=== PATIENT | female | born 1975 | race African-American/Black ===

== ENCOUNTER 2018-11-04 11:23 | Emergency (ER) | payer OTHER ==
[2018-11-04 11:33] VITALS: BP 118/74; PULSE 95; TEMP 98.2; BMI 38.7
--- NOTE | 2018-11-04 12:46 | PDOC ---
History of Present Illness - General Chief Complaint: Pain Stated Complaint: BILAT LEG PAIN Time Seen by Provider: 11/04/18 11:58 History Source: Patient - History of Present Illness Occurred: reports: other Severity: Yes: moderate Lower Extremity Pain Location: bilateral: leg Past History - Past Medical History Allergies/Adverse Reactions: Allergies Allergy/AdvReac Type Severity Reaction Status Date / Time tree nut Allergy Severe Swelling Verified 11/04/18 11:28 latex Allergy Verified 11/04/18 11:28 lidocaine Allergy Verified 11/04/18 11:28 shrimp Allergy Swelling Verified 11/04/18 11:28 Home Medications: Ambulatory Orders Albuterol Sulfate [Proair Hfa -] 1 - 2 inh PO TID PRN 08/21/15 Gabapentin 600 mg PO TID 08/21/15 Olmesartan/Hydrochlorothiazide [Benicar Hct 40-25 mg Tablet] 1 each PO DAILY Pantoprazole Sodium [Protonix] 40 mg PO DAILY PRN 08/21/15 Tiotropium [place] [Spiriva Respimat] 4 gm IH DAILY PRN 08/21/15 Ibuprofen [Motrin -] 800 mg PO Q8H PRN #60 tablet 08/23/15 Duloxetine HCl [Cymbalta] 60 mg PO BID 01/06/16 Hydroxychloroquine Sulfate [Plaquenil] 1 tab PO BID 05/30/18 Oxycodone HCl/Acetaminophen [Percocet 10-325 mg Tablet] 1 tab PO DAILY PRN 05/30 Zolpidem Tartrate [Ambien] 1 tab PO HS 05/30/18 Anemia: No Asthma: Yes (LAST USED INHALERS yesterday) Cancer: No Cardiac Disorders: Yes (ABNORMAL 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-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,STRESS TEST,CARD CATH--OK ,NO STENT) CVA: No COPD: No CHF: No Dementia: No Diabetes: No GI Disorders: Yes (GERD) Disorders: No HTN: Yes Hypercholesterolemia: Yes Liver Disease: No Seizures: No Thyroid Disease: No - Surgical History Abdominal Surgery: No Appendectomy: No Cardiac Surgery: No Cholecystectomy: Yes Lung Surgery: No Neurologic Surgery: No Orthopedic Surgery: No - Immunization History Immunization Up to Date: Yes - Suicide/Smoking/Psychosocial Hx Smoking History: Never smoked Have you smoked in the past 12 months: Yes Number of Cigarettes Smoked Daily: 6 Cigars Per Day: 8 Hx Alcohol Use: No Drug/Substance Use Hx: No Substance Use Type: Alcohol Hx Substance Use Treatment: No Review of Systems - Review of Systems Constitutional: No: Chills, Fever Respiratory: No: Shortness of Breath Cardiac (ROS): No: Chest Pain, Palpitations *Physical Exam - Vital Signs Last Vital Signs Temp Pulse Resp BP Pulse Ox 98.2 F 95 H 17 118/74 100 11/04/18 11:29 11/04/18 11:29 11/04/18 11:29 11/04/18 11:11/04/18 11:29 - Physical Exam General Appearance: Yes: Appropriately Dressed. No: Apparent Distress HEENT: positive: Normal Voice Neck: positive: Supple Respiratory/Chest: negative: Respiratory Distress Extremity: positive: Normal Inspection, Other (pedal pulses intact b/l). negative: Tender, Swelling Integumentary: positive: Dry, Warm Neurologic: positive: Fully Oriented, Alert, Normal Mood/Affect ED Treatment Course - RADIOLOGY Radiology Studies Ordered: Category Date Time Status DUPLEX VASCUL US-2LEGS [US] Stat Ultrasound 11/04/18 12:42 Ordered Medical Decision Making - Medical Decision Making 11/04/18 12:43 Patient is a 40-year-old female with history of lupus, migraines, hypertension, smoker, COPD, here with bilateral lower extremity pain. Patient states for the past 2 weeks has had intermittent pain to bilateral lower legs now radiating into her thighs. Hurts with certain movement. Has not taken anything for pain. No trauma. No history of DVT. Denies any other other acute symptoms at this time. States she was across the street seeing her neurologist for her migraines and mentioned pain and was told to come to the ED to make sure she doesn't have blood clots. Patient denies any acute chest pain, shortness of breath or palpitations at this time see exam B/l LE pain No trauma No findings on exam to explain sxs, possibly MSK -offered pain meds and declined -will get DVT study given h/o lupus -anticipate dc w/ pmd f/u 11/04/18 14:53 US neg for DVT. Stable for discharge w/ PMD f/u for further eval 11/04/18 15:09 *DC/Admit/Observation/Transfer Diagnosis at time of Disposition: Leg pain, bilateral - Discharge Dispostion Disposition: HOME Condition at time of disposition: Good - Referrals Referrals: Yuri Kitchen [Primary Care Provider] - - Patient Instructions Additional Instructions: The cause of your leg pain is unclear at this time and you will need to continue to follow-up with her PMD for further evaluation. Ultrasound of your legs were negative for any blood clot - Post Discharge Activity
== END 2018-11-04 15:09 | disposition home or self-care (01) ==
LOC: JER 11:23
DX: M79.605 Pain in left leg (principal); M79.604 Pain in right leg; M32.9 Systemic lupus erythematosus, unspecified; I10 Essential (primary) hypertension; Z98.61 Coronary angioplasty status; J44.9 Chronic obstructive pulmonary disease, unspecified; F17.210 Nicotine dependence, cigarettes, uncomplicated
CPT/HCPCS: 93970-TC; 99282-25

== ENCOUNTER 2021-06-04 12:32 | Emergency (ER) | payer OTHER ==
[2021-06-04 12:47] VITALS: TEMP 97.9; BMI 37.9
[2021-06-04] MEDS ORDERED: morphine CARPU-JECT 4 MG/1 ML DISP.SYRIN IVPUSH ONE (13:56)
[2021-06-04] MEDS ORDERED: morphine SULFATE 4 MG/ML VIAL ONE (13:59)
[2021-06-04 14:13] LABS: BASO % 0.5 % (0-2.0); EOS % 1.6 % (0-4.5); HEMATOCRIT 43.4 % (32.4-45.2); HEMOGLOBIN 14.6 GM/dL (10.7-15.3); LYMPH % 27.7 % (8-40); MCH 24.5 pg (25.7-33.7); MCHC 33.5 g/dl (32.0-36.0); MEAN CELL VOLUME 73.1 fl (80-96); MEAN PLT VOLUME 8.7 fl (7.5-11.1); MONO % 3.2 % (3.8-10.2); PLATELET COUNT 232 10^3/uL (134-434); RBC 5.94 M/mm3 (3.60-5.2)
[2021-06-04 14:28] LABS: INR 1.16 (0.83-1.09)
[2021-06-04 14:35] LABS: CALCIUM 9.6 mg/dL (8.5-10.1)
[2021-06-04 14:36] LABS: ALBUMIN 3.7 g/dl (3.4-5.0); BLOOD UREA NITROGEN 8.4 mg/dL (7-18)
[2021-06-04 14:39] LABS: CREATININE 0.9 mg/dL (0.55-1.3)
[2021-06-04 14:40] LABS: BILIRUBIN,TOTAL 0.4 mg/dL (0.2-1); TOT PROT 8.2 g/dl (6.4-8.2)
[2021-06-04 14:46] LABS: PH,URINE 5.5 (5.0-8.0); URINE APPEARANCE CLEAR; URINE BILIRUBIN NEGATIVE (NEGATIVE); URINE COLOR YELLOW; URINE GLUCOSE (UA) NEGATIVE (NEGATIVE); URINE KETONE NEGATIVE (NEGATIVE); URINE LEUK ESTERASE NEGATIVE (NEGATIVE); URINE NITRITE NEGATIVE (NEGATIVE); URINE PROTEIN NEGATIVE (NEGATIVE); URINE UROBILINOGEN 0.2 mg/dL (0.2-1.0)
[2021-06-04] MEDS ORDERED: SIMETHICONE 80 MG TAB.CHEW (FP) PO ONE (20:35)
[2021-06-04] MEDS ORDERED: MAG HYDROX/AL HYDROX/SIMETH 30 ML UNIT-DOSE CUP PO ONE (20:44)
[2021-06-04] MEDS ORDERED: MAG HYDROX/AL HYDROX/SIMETH 30 ML UNIT-DOSE CUP ONE (20:45)
[2021-06-04 21:22] VITALS: BP 132/84; PULSE 79
== END 2021-06-04 21:26 | disposition home or self-care (01) ==
LOC: JER 12:32
PROC: 3E033GC Introduction of Other Therapeutic Substance into Peripheral Vein, Percutaneous Approach (ICD-10-PCS; principal; 2021-06-04)
DX: R14.0 Abdominal distension (gaseous) (principal)
CPT/HCPCS: 36415; 74019-TC-FY; 74177-TC; 76705-TC; 80053; 81003; 83690; 85025; 85610; 86850; 86900; 86901; 87086; 99285-25; Q9967

== ENCOUNTER 2022-05-12 10:54 | Emergency (ER) | payer OTHER ==
[2022-05-12 11:03] VITALS: BP 154/89; PULSE 91; RESP 17; TEMP 97.6; BMI 38.7
[2022-05-12] MEDS ORDERED: ACETAMINOPHEN/CAFFEINE/BUTALBITAL 1 TAB PO ONE (11:27)
[2022-05-12] MEDS ORDERED: METOCLOPRAMIDE HCL 10 MG TABLET (FP) PO ONE ×2 (11:27→11:32)
[2022-05-12] MEDS ORDERED: KETOROLAC TROMETHAMINE 30 MG/1 ML VIAL IM ONE (11:27)
[2022-05-12] MEDS ORDERED: KETOROLAC TROMETHAMINE 30 MG/1 ML VIAL ONE (11:32)
[2022-05-12] MEDS ORDERED: ACETAMINOPHEN/CAFFEINE/BUTALBITAL 1 TAB ONE (11:42)
== END 2022-05-12 12:49 | disposition home or self-care (01) ==
LOC: JER 10:54
PROC: 3E0233Z Introduction of Anti-inflammatory into Muscle, Percutaneous Approach (ICD-10-PCS; principal; 2022-05-12)
DX: G44.209 Tension-type headache, unspecified, not intractable (principal)
CPT/HCPCS: 70450-TC; 84703; 99284-25

== ENCOUNTER 2023-11-22 08:55 | Emergency (ER) | payer OTHER ==
[2023-11-22 09:07] VITALS: BMI 37.1
[2023-11-22] MEDS ORDERED: ACETAMINOPHEN 325 MG TABLET (FP) ONE (09:32)
[2023-11-22] MEDS ORDERED: MAG HYDROX/AL HYDROX/SIMETH 30 ML UNIT-DOSE CUP ONE (09:32)
[2023-11-22] MEDS ORDERED: FAMOTIDINE 20 MG TABLET ONE (09:32)
[2023-11-22] MEDS: MAG HYDROX/AL HYDROX/SIMETH 30 ML UNIT-DOSE CUP PO ONE (09:40)
[2023-11-22] MEDS: FAMOTIDINE 10 MG TABLET PO ONE (09:40)
[2023-11-22] MEDS: ACETAMINOPHEN 325 MG TABLET (FP) PO ONE (09:40)
[2023-11-22] MEDS: SODIUM CHLORIDE 0.9% 500 ML INFUS.BAG IV ONE (09:45)
[2023-11-22 10:02] LABS: BASO % 0.4 % (0-2.0); EOS % 1.8 % (0-4.5); HEMATOCRIT 41.7 % (32.4-45.2); HEMOGLOBIN 13.8 GM/dL (10.7-15.3); LYMPH % 22.7 % (8-40); MCH 23.7 pg (25.7-33.7); MEAN CELL VOLUME 71.9 fl (80-96); MEAN PLT VOLUME 7.9 fl (7.5-11.1); MONO % 6.7 % (3.8-10.2); NEUT % 68.4 % (42.8-82.8); PLATELET COUNT 222 10^3/uL (134-434); RDW 15.4 % (11.6-15.6); WHITE BLOOD COUNT 10.5 K/mm3 (4.0-10.0)
[2023-11-22 10:07] LABS: INR 1.06 (0.83-1.09)
[2023-11-22 10:10] LABS: ACTIVATED PTT 33.6 SECONDS (25.2-36.5)
[2023-11-22 10:18] LABS: POTASSIUM 4.5 mmol/L (3.5-5.1)
[2023-11-22 10:20] LABS: CALCIUM 9.6 mg/dL (8.5-10.1)
[2023-11-22 10:21] LABS: ALBUMIN 3.2 g/dl (3.4-5.0); BLOOD UREA NITROGEN 9.4 mg/dL (7-18); MAGNESIUM 2.3 mg/dL (1.8-2.4)
[2023-11-22 10:24] LABS: CREATININE 0.9 mg/dL (0.55-1.3)
[2023-11-22 10:25] LABS: BILIRUBIN,TOTAL 0.4 mg/dL (0.2-1); TOT PROT 7.5 g/dl (6.4-8.2)
[2023-11-22 10:49] LABS: URINE APPEARANCE CLEAR; URINE BILIRUBIN 1+ (NEGATIVE); URINE COLOR DK YELLOW; URINE GLUCOSE (UA) NEGATIVE (NEGATIVE); URINE KETONE TRACE (NEGATIVE); URINE LEUK ESTERASE NEGATIVE (NEGATIVE); URINE NITRITE NEGATIVE (NEGATIVE); URINE PROTEIN NEGATIVE (NEGATIVE)
[2023-11-22] MEDS ORDERED: KETOROLAC TROMETHAMINE 15 MG/ML VIAL ONE ×2 (12:26→12:33)
[2023-11-22] MEDS: KETOROLAC TROMETHAMINE 15 MG/ML VIAL IVPUSH ONE (12:35)
[2023-11-22 12:44] VITALS: BP 128/77; PULSE 79; RESP 17; TEMP 98.5
== END 2023-11-22 12:45 | disposition home or self-care (01) ==
LOC: JER 08:55
PROC: 3E0333Z Introduction of Anti-inflammatory into Peripheral Vein, Percutaneous Approach (ICD-10-PCS; principal; 2023-11-22)
DX: R10.13 Epigastric pain (principal)
CPT/HCPCS: 36415; 74177-TC; 80053; 81003; 83690; 83735; 84484; 85025; 85610; 85730; 87086; 93005; 93010; 99285-25

== ENCOUNTER 2024-01-24 07:41 | Observation (INO) | payer OTHER ==
[2024-01-24 07:53] VITALS: BMI 37.9
[2024-01-24] MEDS ORDERED: METOCLOPRAMIDE HCL INJECTION 10 MG/2 ML VIAL ONE (09:31)
[2024-01-24 09:38] LABS: HEMATOCRIT 47.7 % (32.4-45.2); MCH 23.9 pg (25.7-33.7); MCHC 33.6 g/dl (32.0-36.0); MEAN CELL VOLUME 71.2 fl (80-96); MEAN PLT VOLUME 7.6 fl (7.5-11.1); PLATELET COUNT 235 10^3/uL (134-434); RDW 15.5 % (11.6-15.6); WHITE BLOOD COUNT 8.8 K/mm3 (4.0-10.0)
[2024-01-24] MEDS: SODIUM CHLORIDE 0.9% 500 ML INFUS.BAG IV ONE ×2 (09:46→15:14)
[2024-01-24] MEDS: METOCLOPRAMIDE HCL INJECTION 10 MG/2 ML VIAL IVPUSH ONE (09:47)
[2024-01-24 09:54] LABS: POTASSIUM 4.7 mmol/L (3.5-5.1)
[2024-01-24 09:56] LABS: CALCIUM 8.7 mg/dL (8.5-10.1)
[2024-01-24 09:57] LABS: ALBUMIN 3.3 g/dl (3.4-5.0); BLOOD UREA NITROGEN 16.3 mg/dL (7-18)
[2024-01-24 10:00] LABS: CREATININE 1.3 mg/dL (0.55-1.3)
[2024-01-24 10:01] LABS: BILIRUBIN,TOTAL 0.4 mg/dL (0.2-1); TOT PROT 7.4 g/dl (6.4-8.2)
[2024-01-24] MEDS ORDERED: ACETAMINOPHEN INJECTION 100 ML IVPB ONE (10:35)
[2024-01-24] MEDS ORDERED: ALBUTEROL SO4 2.5/IPRATROPIUM 0.5 INH SOL 3 ML VIAL.NEB. NEB ONE ×3 (10:35→20:12)
[2024-01-24] MEDS: ALBUTEROL SO4 2.5/IPRATROPIUM 0.5 INH SOL 3 ML VIAL.NEB. NEB ONE (10:44)
[2024-01-24] MEDS: ACETAMINOPHEN 1000 MG/100 ML BAG IVPB ONE (10:44)
[2024-01-24] MEDS ORDERED: KETOROLAC TROMETHAMINE 15 MG/ML VIAL ONE (10:55)
[2024-01-24] MEDS: KETOROLAC TROMETHAMINE 15 MG/ML VIAL IVPUSH ONE (11:01)
[2024-01-24] MEDS ORDERED: DEXAMETHASONE SOD PHOSPHATE 10 MG/1 ML VIAL ONE (11:27)
[2024-01-24] MEDS: DEXAMETHASONE SOD PHOSPHATE 10 MG/1 ML VIAL IVPUSH ONE (11:33)
[2024-01-24] MEDS: ALBUTEROL SO4 2.5/IPRATROPIUM 0.5 INH SOL 3 ML VIAL.NEB. NEB SCH (17:24)
[2024-01-24] MEDS: REMDESIVIR 200 MG in SODIUM CHLORIDE 250 ML IVPB ONE (18:20)
[2024-01-25] MEDS: ACETAMINOPHEN 325 MG TABLET (FP) PO PRN (06:43)
[2024-01-25] MEDS: ENOXAPARIN NA (PORCINE) 40 MG/0.4 ML DISP.SYRIN SQ SCH (10:38)
[2024-01-25] MEDS: REMDESIVIR 200 MG in SODIUM CHLORIDE 250 ML IVPB ONE (10:40)
[2024-01-25 10:56] LABS: BASO % 0.3 % (0-2.0); HEMATOCRIT 40.3 % (32.4-45.2); HEMOGLOBIN 13.6 GM/dL (10.7-15.3); LYMPH % 21.9 % (8-40); MCH 24.2 pg (25.7-33.7); MCHC 33.8 g/dl (32.0-36.0); MEAN CELL VOLUME 71.5 fl (80-96); MEAN PLT VOLUME 7.7 fl (7.5-11.1); MONO % 6.5 % (3.8-10.2); NEUT % 71.3 % (42.8-82.8); PLATELET COUNT 180 10^3/uL (134-434); RBC 5.64 M/mm3 (3.60-5.2); RDW 15.6 % (11.6-15.6); WHITE BLOOD COUNT 8.1 K/mm3 (4.0-10.0)
[2024-01-25 11:13] LABS: POTASSIUM 4.5 mmol/L (3.5-5.1)
[2024-01-25 11:15] LABS: CALCIUM 8.1 mg/dL (8.5-10.1)
[2024-01-25 11:16] LABS: ALBUMIN 2.7 g/dl (3.4-5.0); BLOOD UREA NITROGEN 18.3 mg/dL (7-18); MAGNESIUM 1.8 mg/dL (1.8-2.4)
[2024-01-25 11:19] LABS: CREATININE 0.8 mg/dL (0.55-1.3); PHOSPHOROUS 2.9 mg/dL (2.5-4.9)
[2024-01-25 11:20] LABS: TOT PROT 6.4 g/dl (6.4-8.2)
[2024-01-25 11:21] LABS: BILIRUBIN,TOTAL 0.2 mg/dL (0.2-1)
[2024-01-26 09:12] VITALS: BP 136/80; PULSE 82; RESP 18; TEMP 97.6
[2024-01-26] MEDS: TOPIRAMATE 25 MG TABLET PO SCH (10:12)
[2024-01-26] MEDS: PRAMIPEXOLE DIHYDROCHLORIDE 0.25 MG TABLET PO SCH (10:28)
[2024-01-26] MEDS: REMDESIVIR 100 MG in SODIUM CHLORIDE 270 ML IVPB ONE (15:33)
== END 2024-01-26 17:23 | disposition home or self-care (01) ==
LOC: JER 07:41 → JERBED 12:30 → J4S 21:52
PROVIDERS: ADMIT Internal Medicine; ATTEND Internal Medicine
PROC: 3E033NZ Introduction of Analgesics, Hypnotics, Sedatives into Peripheral Vein, Percutaneous Approach (ICD-10-PCS; principal; 2024-01-24)
PROC: 3E0F7GC Introduction of Other Therapeutic Substance into Respiratory Tract, Via Natural or Artificial Opening (ICD-10-PCS; 2024-01-24)
PROC: 3E033GC Introduction of Other Therapeutic Substance into Peripheral Vein, Percutaneous Approach (ICD-10-PCS; 2024-01-24)
PROC: 3E023GC Introduction of Other Therapeutic Substance into Muscle, Percutaneous Approach (ICD-10-PCS; 2024-01-24)
PROC: 3E0333Z Introduction of Anti-inflammatory into Peripheral Vein, Percutaneous Approach (ICD-10-PCS; 2024-01-24)
PROC: 3E0337Z Introduction of Electrolytic and Water Balance Substance into Peripheral Vein, Percutaneous Approach (ICD-10-PCS; 2024-01-24)
DX: U07.1 COVID-19 (principal); R09.02 Hypoxemia; J44.9 Chronic obstructive pulmonary disease, unspecified; R94.31 Abnormal electrocardiogram [ECG] [EKG]; K21.9 Gastro-esophageal reflux disease without esophagitis; I10 Essential (primary) hypertension; N32.81 Overactive bladder; M32.9 Systemic lupus erythematosus, unspecified; F17.210 Nicotine dependence, cigarettes, uncomplicated; M79.7 Fibromyalgia; N20.0 Calculus of kidney; G89.4 Chronic pain syndrome; Z91.013 Allergy to seafood; Z88.8 Allergy status to other drugs, medicaments and biological substances
CPT/HCPCS: 0241U-QW; 36415; 71046-TC-FY; 71275-TC; 80053; 83735; 84100; 84443; 84484; 85025; 85027; 93005; 93010; 94640; 96365; 96366; 96372; 96375; 99285-25; G0378; J0131; J0248; J1100; Q9967

== ENCOUNTER 2024-06-06 09:21 | Emergency (ER) | payer OTHER ==
[2024-06-06 09:40] VITALS: BP 145/86; PULSE 55; RESP 18; TEMP 98.1; BMI 37.1
[2024-06-06] MEDS ORDERED: LIDOCAINE 4% PATCH TP ONE (11:29)
[2024-06-06] MEDS ORDERED: ACETAMINOPHEN INJECTION 100 ML ONE (11:29)
[2024-06-06] MEDS ORDERED: KETOROLAC TROMETHAMINE 15 MG/ML VIAL ONE (11:42)
[2024-06-06 11:45] LABS: BASO % 0.6 % (0-2.0); EOS % 2.1 % (0-4.5); HEMATOCRIT 41.6 % (32.4-45.2); HEMOGLOBIN 13.9 GM/dL (10.7-15.3); MCH 24.3 pg (25.7-33.7); MCHC 33.4 g/dl (32.0-36.0); MEAN CELL VOLUME 72.7 fl (80-96); MEAN PLT VOLUME 7.7 fl (7.5-11.1); NEUT % 64.3 % (42.8-82.8); PLATELET COUNT 196 10^3/uL (134-434); RBC 5.72 M/mm3 (3.60-5.2); RDW 15.1 % (11.6-15.6); WHITE BLOOD COUNT 9.2 K/mm3 (4.0-10.0)
[2024-06-06] MEDS: LIDOCAINE 4% PATCH TP ONE (11:47)
[2024-06-06] MEDS: KETOROLAC TROMETHAMINE 15 MG/ML VIAL IVPUSH ONE (11:48)
[2024-06-06] MEDS: ACETAMINOPHEN 1000 MG/100 ML BAG IVPB ONE (11:48)
[2024-06-06 11:53] LABS: PROTHROMBIN TIME (PATIENT) 11.5 SEC (9.7-13.0)
[2024-06-06 11:56] LABS: ACTIVATED PTT 34.3 SECONDS (25.2-36.5)
[2024-06-06 12:04] LABS: POTASSIUM 3.9 mmol/L (3.5-5.1)
[2024-06-06 12:05] LABS: CALCIUM 9.1 mg/dL (8.5-10.1)
[2024-06-06 12:06] LABS: ALBUMIN 3.2 g/dl (3.4-5.0); BLOOD UREA NITROGEN 11.3 mg/dL (7-18)
[2024-06-06 12:09] LABS: CREATININE 0.8 mg/dL (0.55-1.3)
[2024-06-06 12:11] LABS: BILIRUBIN,TOTAL 0.3 mg/dL (0.2-1)
[2024-06-06] MEDS ORDERED: LIDOCAINE PATCH REMOVAL MC ONE (22:00)
== END 2024-06-06 15:47 | disposition home or self-care (01) ==
LOC: JER 09:21
PROC: 3E033NZ Introduction of Analgesics, Hypnotics, Sedatives into Peripheral Vein, Percutaneous Approach (ICD-10-PCS; principal; 2024-06-06)
PROC: 3E0333Z Introduction of Anti-inflammatory into Peripheral Vein, Percutaneous Approach (ICD-10-PCS; 2024-06-06)
DX: R07.89 Other chest pain (principal); G89.29 Other chronic pain
CPT/HCPCS: 36415; 71275-TC; 80053; 85025; 85379; 85610; 85730; 96374; 96375; 99285-25; J0131; Q9967